=== PATIENT | female | born 1960 | race Asian ===

== ENCOUNTER 2018-08-11 00:55 | Emergency (ER) | payer OTHER ==
[~2018-08-11] VITALS: Ht 152.4 cm; Wt 57.6 kg
[2018-08-11 01:04] VITALS: BP 184/93
[2018-08-11 04:27] VITALS: BP 162/90
== END 2018-08-11 04:27 | disposition home or self-care (01) ==
LOC: MED 00:55
DX: S60.472A Other superficial bite of right middle finger, initial encounter (principal); I10 Essential (primary) hypertension; Z88.0 Allergy status to penicillin; W54.0XXA Bitten by dog, initial encounter; Y93.89 Activity, other specified; Y92.89 Other specified places as the place of occurrence of the external cause; Y99.8 Other external cause status
CPT/HCPCS: 90471; 90715; 99283